=== PATIENT | male | born 1985 | race Caucasian/White ===

== ENCOUNTER 2017-01-23 18:45 | Emergency (ER) | payer BC ==
[2017-01-23 19:00] VITALS: TEMP 101.7
--- NOTE | 2017-01-23 19:30 | RAD ---
PROCEDURE: Chest,2 Views CLINICAL HISTORY: Fever, cough INDICATION: Same as above COMPARISON: None TECHNIQUE: PA and and lateral chest radiographs were obtained. FINDINGS: The lung matthews are well inflated. There are no discrete airspace infiltrates, pneumothoraces or pleural effusions. The pulmonary vascularity is normal The cardiomediastinal silhouette is unremarkable for patient's age and sex. IMPRESSION: There is no acute pleural-parenchymal process seen in the imaged lung matthews. Place of interpretation: T[facility]. Electronically signed by: Yury De Santiago MD 01/23/2017 7:30 PM CDT
--- NOTE | 2017-01-23 20:07 | ED.PDOC ---
History of Present Illness - General Chief Complaint: Fever Stated Complaint: Fever and not feeling well Time Seen by Provider: 01/23/17 18:51 Source: patient, RN notes reviewed, Vital Signs reviewed Exam Limitations: no limitations - History of Present Illness Initial Comments: Patient started with fever this afternoon. Reports it was 105.4 on the baby thermometer. + fatigue but no other specific symptoms. Timing/Duration: this afternoon Fever Severity/Quality: greater than 102 F Fever Therapy UNSTACKER: Ibuprofen Associated Symptoms: cough - but reports this is chronic and no change from baseline Review of Systems - Review of Systems Constitutional: States: chills, diaphoresis, fever, malaise EENTM: States: no symptoms reported. Denies: nose congestion, throat pain, mouth pain Respiratory: States: cough. Denies: short of breath, stridor, wheezing Cardiology: States: no symptoms reported. Denies: chest pain Gastrointestinal/Abdominal: States: no symptoms reported. Denies: abdominal pain, diarrhea, nausea, vomiting Genitourinary: Denies: no symptoms reported, discharge, dysuria Musculoskeletal: States: no symptoms reported Skin: States: no symptoms reported Neurological: States: no symptoms reported. Denies: headache Past Medical History (General) - Patient Medical History Hx Seizures: No Hx Stroke: No Hx Dementia: No Hx Asthma: No Hx of COPD: No Hx Cardiac Disorders: No Hx Congestive Heart Failure: No Hx Pacemaker: No Hx Hypertension: No Hx Thyroid Disease: No Hx Diabetes: No Hx Gastroesophageal Reflux: No Hx Renal Disease: No Hx Cancer: No Hx of HIV: No Hx Hepatitis C: No Hx MRSA: No - Vaccination History Hx Tetanus, Diphtheria Vaccination: No Hx Influenza Vaccination: No Hx Pneumococcal Vaccination: No Immunizations Up to Date: No - Social History Hx Tobacco Use: No Hx Chewing Tobacco Use: No Hx Alcohol Use: Yes Hx Substance Use: No Hx Substance Use Treatment: No Hx Depression: No Feels Threatened In Home Enviroment: No Feels Threatened In a Relationship: No Hx Physical Abuse: No Hx Emotional Abuse: No Hx Suspected Abuse: No - Female History Patient is a Female of Child Bearing Age (10 -59 yrs old): No Patient : No Family Medical History - Family History Mother Family History: No Known Living Status: Physical Exam - Physical Exam General Appearance: Alert, Comfortable, No apparent distress, Well Developed, Well Groomed, Well Hydrated, Well Nourished ENT Exam: normal ENT inspection, hearing grossly normal, TMs normal, pharynx normal Neck: non-tender, full range of motion, supple, normal inspection Respiratory: lungs clear, normal breath sounds, no respiratory distress, no accessory muscle use Cardiovascular/Chest: regular rate, rhythm, no edema, no gallop, no JVD, no murmur Gastrointestinal/Abdominal: normal bowel sounds, non tender, soft, no organomegaly, no pulsatile mass Extremity: normal range of motion, non-tender, normal inspection, no pedal edema Neurologic: alert, normal mood/affect, oriented x 3 Skin Exam: diaphoresis Comments: Vital Signs - 24 hr 01/23/17 01/23/17 18:54 19:17 Temperature 101.7 F H Pulse Rate [ 120 H Left Radial] Respiratory 20 Rate Blood Pressure 154/98 [Left Arm] O2 Sat by Pulse 92 L Oximetry Progress - Progress Progress: 01/23/17 20:09 Discussed lab and X-ray results with patient. Has mildly elevated LFT's so ordered Hepatitis Panel. He does admit to significant alcohol intake. Discussed decreasing his Etoh intake to no more that 2 drinks/day. Most likely fever is from viral illness. Will treat conservatively. - Results/Orders Results/Orders: Laboratory Tests 01/23/17 01/23/17 01/23/17 19:15 19:20 19:20 WBC 7.3 RBC 5.01 Hgb 16.8 Hct 47.7 MCV 95.1 H MCH 33.6 H MCHC 35.3 RDW 12.7 Plt Count 120 L MPV 10.0 Absolute Neuts (auto) 5.90 Absolute Lymphs (auto) 0.60 L Absolute Monos (auto) 0.60 Absolute Eos (auto) 0.10 Absolute Basos (auto) 0.00 Neutrophils % 80.8 H Lymphocytes % 8.3 L Monocytes % 8.8 Eosinophils % 1.5 Basophils % 0.6 Sodium 133 L Potassium 3.7 Chloride 100 L Carbon Dioxide 27 Anion Gap 9.7 L BUN 12 Creatinine 0.74 BUN/Creatinine Ratio 16.2 Random Glucose 120 H Serum Osmolality 267.3 L Calcium 9.0 Total Bilirubin 0.9 AST 108 H ALT 117 H Alkaline Phosphatase 78 Serum Total Protein 9.0 H Albumin 4.0 Globulin 5.0 H Albumin/Globulin Ratio 0.8 L Group A Strep DNA Negative - EKG/XRAY/CT XRAY: chest - No acute process per Radiologist Departure - Departure Clinical Impression: Fever and chills, Liver function test abnormality Time of Disposition: 20:11 Disposition: Discharge to Home or Self Care Condition: Good Departure Forms: ED Discharge - Pt. Copy, Patient Portal Self Enrollment Instructions: DI for Viral Upper Respiratory Infection -- Adult Diet: low fat, low cholesterol, other - Decrease alcohol intake to no more than 2 drinks per day Activity: increase activity as tolerated Referrals: Alec Jimenes MD [Primary Care Provider] - 1-5 Days Home Medications: Ambulatory Orders Omeprazole Magnesium [Prilosec Otc] 01/23/17
[2017-01-23 20:27] VITALS: BP 163/97; O2SAT 95
== END 2017-01-23 20:27 | disposition home or self-care (01) ==
LOC: ER 18:45
DX: R50.9 Fever, unspecified (principal); R94.5 Abnormal results of liver function studies

== ENCOUNTER → 2017-06-16 | Outpatient (CLI) | payer BC | END | disposition home or self-care (01) | LOC: LAB.O 15:36 | PROVIDERS: ATTEND Family Medicine | DX: Z30.2 Encounter for sterilization (principal) ==

== ENCOUNTER 2018-07-18 11:02 | Emergency (ER) | payer BC ==
[2018-07-18] MEDS ORDERED: MORPHINE SULFATE INJ 10 MG/ML VIAL ONE (11:29)
[2018-07-18] MEDS ORDERED: MORPHINE SULFATE INJ 10 MG/ML VIAL IV ONE (11:31)
--- NOTE | 2018-07-18 11:33 | ED.PDOC ---
History of Present Illness - General Chief Complaint: Abdominal Pain Stated Complaint: Epigastric discomfort Time Seen by Provider: 07/18/18 11:33 Information Source: patient Exam Limitations: no limitations - History of Present Illness Initial Comments: Trip Cortes 33 y/o male stated that he has history of GE reflux for the last 15 years on OTC-Prilosec had severe burning mid abdominal pain goes up to his epigastrium on and off for the last one week and getting more steady today and had 1-2 episodes of nausea/vomiting today.Denies diarrhea,dysuria, hemetemesis.Stated aggravated after a meal. Abdominal Pain Onset Location: epigastric Pain Radiation: no radiation Quality: moderate, burning Timing/Duration: 1 week Improving Factors: rest Worsening Factors: eating Associated Symptoms: other - see hpi Review of Systems - Review of Systems Constitutional: States: no symptoms reported EENTM: States: no symptoms reported Respiratory: States: no symptoms reported Cardiology: States: no symptoms reported Gastrointestinal/Abdominal: States: see HPI Genitourinary: States: no symptoms reported Musculoskeletal: States: no symptoms reported Skin: States: no symptoms reported Past Medical History (General) - Patient Medical History Hx Seizures: No Hx Stroke: No Hx Dementia: No Hx Asthma: No Hx of COPD: No Hx Cardiac Disorders: No Hx Congestive Heart Failure: No Hx Pacemaker: No Hx Hypertension: No Hx Thyroid Disease: No Hx Diabetes: No Hx Gastroesophageal Reflux: Yes Hx Renal Disease: No Hx Cancer: No Hx of HIV: No Hx Hepatitis C: No Hx MRSA: No Surgical History: other - right shoulder - Vaccination History Hx Tetanus, Diphtheria Vaccination: No Hx Influenza Vaccination: No Hx Pneumococcal Vaccination: No - Social History Hx Tobacco Use: No Hx Chewing Tobacco Use: No Hx Alcohol Use: Yes Hx Substance Use: No Hx Substance Use Treatment: No Hx Depression: No Hx Physical Abuse: No Hx Emotional Abuse: No Hx Suspected Abuse: No - Female History Patient : No Family Medical History - Family History Mother Family History: No Known Living Status: Physical Exam - Physical Exam General Appearance: Alert, Anxious, No apparent distress Eyes, Ears, Nose, Throat Exam: normal ENT inspection, other - non icteric sclerae Neck: non-tender, full range of motion, supple, normal inspection Respiratory: chest non-tender, lungs clear, normal breath sounds, no respiratory distress Cardiovascular/Chest: normal peripheral pulses, regular rate, rhythm, no murmur Peripheral Pulses: No deficit Gastrointestinal/Abdominal: normal bowel sounds, soft, tenderness - mid abdomen; no peritoneal signs Back Exam: no CVA tenderness, no vertebral tenderness Extremity: no pedal edema, no calf tenderness Neurologic: alert, oriented x 3 Skin Exam: normal color, warm/dry Progress - Progress Progress: 07/18/18 14:19 Vital Signs - 8 hr 07/18/18 07/18/18 12:15 13:15 Pulse Rate [ 64 64 PULSE OX] Respiratory 20 16 Rate Blood Pressure 124/78 124/96 [RAC] O2 Sat by Pulse 96 98 Oximetry - Results/Orders Results/Orders: 07/18/18 11:34 IV Care:Saline Lock per Protoc QSHIFT Laboratory Results - last 24 hr 07/18/18 07/18/18 11:37 11:57 WBC 9.4 RBC 4.47 L Hgb 15.7 Hct 44.3 MCV 99.3 H MCH 35.1 H MCHC 35.3 RDW 12.0 Plt Count 169 MPV 10.9 H Absolute Neuts (auto) 6.70 Absolute Lymphs (auto) 1.80 Absolute Monos (auto) 0.70 Absolute Eos (auto) 0.10 Absolute Basos (auto) 0.10 Neutrophils % 70.7 Lymphocytes % 19.6 L Monocytes % 7.4 Eosinophils % 1.6 Basophils % 0.7 PT 11.9 H INR 1.19 H PTT (SP) 30.1 Sodium 136 Potassium 3.4 L Chloride 101 Carbon Dioxide 27 Anion Gap 11.4 L BUN 9 Creatinine 0.79 BUN/Creatinine Ratio 11.4 Random Glucose 126 H Serum Osmolality 272.2 L Calcium 9.5 Magnesium 1.6 L Total Bilirubin 3.1 H* Direct Bilirubin 1.4 H Indirect Bilirubin 1.7 H AST 100 H ALT 79 H Alkaline Phosphatase 104 Creatine Kinase 128 CK-MB (CK-2) 2.5 CK-MB (CK-2) % Not Reportable Troponin I < 0.02 Serum Total Protein 8.8 H Albumin 3.8 Urine Color Gertrudis Urine Appearance Sl cloudy Urine pH >= 9.0 H* Ur Specific Trevor 1.015 Urine Protein 30 Urine Glucose (UA) Negative Urine Ketones Negative Urine Blood Negative Urine Nitrite Negative Urine Bilirubin Small H Urine Urobilinogen 1.0 Ur Leukocyte Esterase Negative Urine RBC 0 Urine WBC 5-10 H Ur Epithelial Cells 1-3 Urine Bacteria 0 Urine Mucus Trace - EKG/XRAY/CT XRAY: chest - no acute abnormalities Xray Comments: Abd-sono: biliary sludge;no gall stone or GB inflammation Departure - Departure Clinical Impression: Abnormal liver enzymes, Steatohepatitis, non-alcoholic Abdominal pain Qualifiers: Abdominal location: epigastric Qualified Code(s): R10.13 - Epigastric pain Time of Disposition: 14:22 Disposition: Discharge to Home or Self Care Condition: Good Departure Forms: ED Discharge - Pt. Copy, Patient Portal Self Enrollment Instructions: Ndiaye's Esophagus, Acid Reflux (Gastroesophageal Reflux Disease ), Adult (DC), [place] Diet, Nonalcoholic Steatohepatitis (KELSEY), Nonalcoholic Fatty Liver Disease (DC) Diet: other - AVOID GREASY SPICY FOODS UNTIL BETTER Referrals: Alec Jimenes MD [Primary Care Provider] - 1-2 Weeks Prescriptions: Acetaminophen W/ Codeine [Tylenol w/Codeine 300-30 mg] 1 tab PO Q8HRS PRN #10 tab PRN Reason: Pain Promethazine Tab [Phenergan Tablet] 25 mg PO .Q4H PRN #14 tab PRN Reason: Nausea Sucralfate Suspension [Carafate Suspension] 10 ml PO ACHS #300 ml Home Medications: Ambulatory Orders Omeprazole Magnesium [Prilosec Otc] 01/23/17 Acetaminophen W/ Codeine [Tylenol w/Codeine 300-30 mg] 1 tab PO Q8HRS PRN #10 tab 07/18/18 Promethazine Tab [Phenergan Tablet] 25 mg PO .Q4H PRN #14 tab 07/18/18 Sucralfate Suspension [Carafate Suspension] 10 ml PO ACHS #300 ml 07/18/18 Additional Instructions: Increase dose of (OTC) Nexium 20mg am/pm;Need to follow up with primary Md 18 Otober for referral to Level Vial Inspector;Return to ER as needed
[2018-07-18] MEDS ORDERED: SUCRALFATE 1 GM/10 ML 1 GM UD PO ONE (11:34)
[2018-07-18] MEDS ORDERED: PROMETHAZINE HCL INJ 25 MG/ML VIAL IM ONE (11:34)
[2018-07-18] MEDS ORDERED: ALUM & MAG HYDROX-SIMETHICONE 30 ML, LIDOCAINE VISCOUS 2% 15 ML PO ONE ×2 (11:34)
[2018-07-18] MEDS ORDERED: PANTOPRAZOLE INJECTION 80 MG in SODIUM CHLORIDE 0.9% 100ML 80 ML IVPB ONE (11:34)
[2018-07-18] MEDS ORDERED: ONDANSETRON INJ 4 MG/2 ML VIAL ONE (11:35)
[2018-07-18] MEDS ORDERED: ONDANSETRON INJ 4 MG/2 ML VIAL IV ONE (11:36)
[2018-07-18] MEDS ORDERED: LIDOCAINE HCL 2% (MOUTH-THROAT) 15 ML UD ONE (11:41)
[2018-07-18] MEDS ORDERED: ALUM & MAG HYDROX-SIMETHICONE 30 ML UD ONE (11:41)
[2018-07-18] MEDS ORDERED: SODIUM CHLORIDE 0.9% 100ML 100 ML IVPB ONE (11:42)
[2018-07-18] MEDS ORDERED: PANTOPRAZOLE SODIUM IV 40 MG VIAL ONE (11:42)
[2018-07-18] MEDS ORDERED: LACTATED RINGERS 1,000 ML IVS ONE (12:20)
--- NOTE | 2018-07-18 12:28 | RAD ---
EXAM DESCRIPTION: Abdomen 1 View CLINICAL HISTORY: pain COMPARISON: Portable chest x-ray on the same visit. TECHNIQUE: AP radiograph of the abdomen supine. 1201 hours. FINDINGS: Minimal gas in the small bowel with mostly fecal material in the ascending and mid colon. No gas-filled distended segments of bowel. No air seen under the bilateral diaphragms. No abnormal radiodense objects overlying the kidneys and included ureters. Included osseous structures are unremarkable. IMPRESSION: Possible proximal constipation. No free air. No gas-filled distended segments of bowel. Electronically signed by: Vinnie Jimenez MD 07/18/2018 12:27 PM CDT
--- NOTE | 2018-07-18 12:34 | RAD ---
EXAM DESCRIPTION: Chest,1 View CLINICAL HISTORY: pain COMPARISON: None. TECHNIQUE: AP portable taken at 1157 hours, upright position. Large patient body habitus. FINDINGS: Lung volumes are decreased bilaterally with elevation of the right hemidiaphragm. Large patient body habitus. Chronic densities in the lung bases bilaterally are stable. No new infiltrate pleural effusion. No pneumothorax. Heart is borderline enlarged but stable. No pulmonary vascular increase. No gross bony thoracic abnormalities. No free air under the diaphragms or distended air-filled bowel segments. IMPRESSION: Limited inspiratory effort stable since the prior study with bilateral chronic densities. Large patient body habitus. Stable since December 2016. Borderline cardiomegaly is unchanged. Pulmonary vascularity is not increased. No free air under the diaphragms. Electronically signed by: Vinnie Jimenez MD 07/18/2018 12:32 PM CDT
--- NOTE | 2018-07-18 14:09 | US ---
EXAM DESCRIPTION: Abdomen,Complete CLINICAL HISTORY: pain COMPARISON: None Available. TECHNIQUE: Complete abdominal ultrasound FINDINGS: The liver is enlarged up to 17.6 cm. Demonstrates mildly increased echogenicity. There is hepatopedal flow in the portal vein which measures 11 mm in diameter. There is no sonographic evidence of a focal hepatic mass. The gallbladder contains a small amount of layering sludge.The gallbladder wall measures 3 mm. No pericholecystic fluid or sonographic Alexander sign. The common bile duct measures 6-7 mm. Visualized portions of the pancreas are unremarkable. The spleen is normal in size, shape, and echotexture. The kidneys are normal in size, shape, and echotexture. The IVC and the proximal aorta are unremarkable. IMPRESSION: 1. Gallbladder sludge without sonographic evidence for acute cholecystitis. 2. Mild hepatomegaly with mild hepatic steatosis. Electronically signed by: Chris Gil MD 07/18/2018 2:08 PM CDT
[2018-07-18 14:43] VITALS: BP 124/89; O2SAT 99
== END 2018-07-18 14:43 | disposition home or self-care (01) ==
LOC: ER 11:02
DX: K75.81 Nonalcoholic steatohepatitis (NASH) (principal); R10.13 Epigastric pain; R79.89 Other specified abnormal findings of blood chemistry; K82.9 Disease of gallbladder, unspecified; K21.9 Gastro-esophageal reflux disease without esophagitis
CPT/HCPCS: 36415; 71045; 74018; 76700; 80048; 80076; 81001; 82550; 82553; 84484; 85025; 85610; 85730; J2270; J2405; J7050; J7120

== ENCOUNTER 2018-07-19 01:52 | Emergency (ER) | payer BC ==
[2018-07-19 02:16] VITALS: O2SAT 98
[2018-07-19] MEDS ORDERED: LACTATED RINGERS 1,000 ML IVS ONE (02:17)
[2018-07-19] MEDS ORDERED: MORPHINE SULFATE INJ 10 MG/ML VIAL IV ONE ×3 (02:17→05:15)
[2018-07-19] MEDS ORDERED: PROMETHAZINE HCL INJ 25 MG/ML VIAL IM ONE (02:17)
--- NOTE | 2018-07-19 02:18 | ED.PDOC ---
History of Present Illness - General Chief Complaint: Abdominal Pain Stated Complaint: abd pain, "gallbladder attack" Time Seen by Provider: 07/19/18 02:12 Information Source: patient Exam Limitations: no limitations - History of Present Illness Initial Comments: Trip Cortes 33 y/o male seen initially this am for epigastric pain symptoms after a meal was worked up had abnormal LFT and abdominal sono showed sludge in gall bladder but no stone ,thickening or inflammation,cbd-no dilatation.He was sent home his symptoms improved after iv morphine and protonix ,GI slider , carafate.Had long standing history of GE reflux esophagitis and on otc Nexium.Alyssa had eaten dinner then few hours later had burning epigastric pain with radiation to his chest took nexium,maalox,tums but his symptoms not relieved so came back to er.No n/v,no dysuria,no hematemesis,no sob. Abdominal Pain Onset Location: epigastric Pain Radiation: chest Quality: burning, steady Timing/Duration: 7-24 hours Improving Factors: nothing Worsening Factors: eating Associated Symptoms: other - see hpi Review of Systems - Review of Systems Constitutional: States: no symptoms reported EENTM: States: no symptoms reported Respiratory: States: no symptoms reported Cardiology: States: no symptoms reported Gastrointestinal/Abdominal: States: see HPI Genitourinary: States: no symptoms reported Musculoskeletal: States: no symptoms reported Skin: States: no symptoms reported Past Medical History (General) - Patient Medical History Hx Seizures: No Hx Stroke: No Hx Dementia: No Hx Asthma: No Hx of COPD: No Hx Cardiac Disorders: No Hx Congestive Heart Failure: No Hx Pacemaker: No Hx Hypertension: No Hx Thyroid Disease: No Hx Diabetes: No Hx Gastroesophageal Reflux: Yes Hx Renal Disease: No Hx Cancer: No Hx of HIV: No Hx Hepatitis C: No Hx MRSA: No Surgical History: other - shoulder - Vaccination History Hx Tetanus, Diphtheria Vaccination: No Hx Influenza Vaccination: No Hx Pneumococcal Vaccination: No - Social History Hx Tobacco Use: No Hx Chewing Tobacco Use: No Hx Alcohol Use: Yes - occ on weekends Hx Substance Use: No Hx Substance Use Treatment: No Hx Depression: No Hx Physical Abuse: No Hx Emotional Abuse: No Hx Suspected Abuse: No - Female History Patient : No Family Medical History - Family History Mother Family History: No Known Living Status: Physical Exam - Physical Exam General Appearance: Alert, Comfortable, No apparent distress Eyes, Ears, Nose, Throat Exam: normal ENT inspection, pharynx normal Neck: non-tender, full range of motion, supple Respiratory: lungs clear, normal breath sounds, no respiratory distress Cardiovascular/Chest: normal peripheral pulses, regular rate, rhythm, no murmur Peripheral Pulses: No deficit Gastrointestinal/Abdominal: normal bowel sounds, soft, tenderness - epigastrium ,no peritoneal signs Back Exam: normal inspection, no CVA tenderness, no vertebral tenderness Extremity: no pedal edema, no calf tenderness Neurologic: alert, oriented x 3 Skin Exam: normal color, warm/dry Progress - Progress Progress: 07/19/18 03:17 Vital Signs - 8 hr 07/19/18 07/19/18 02:08 02:39 Temperature 99.2 F 99.2 F Pulse Rate [ 93 H 85 left] Respiratory 20 20 Rate Blood Pressure 161/94 139/80 [left] O2 Sat by Pulse 98 98 Oximetry - Results/Orders Results/Orders: 07/19/18 02:17 IV Care:Saline Lock per Protoc QSHIFT CARDIAC PANEL,ER Stat HEPATIC FUNCTION PANEL Stat 07/19/18 02:45 EKG STAT 07/19/18 03:34 URINALYSIS Stat Laboratory Results - last 24 hr 07/19/18 07/19/18 07/19/18 02:17 02:17 02:19 WBC 14.7 H D RBC 4.30 L Hgb 14.8 Hct 42.5 MCV 99.0 H MCH 34.4 H MCHC 34.9 RDW 12.1 Plt Count 134 MPV 10.8 H Absolute Neuts (auto) 13.40 H Absolute Lymphs (auto) 0.60 L Absolute Monos (auto) 0.70 Absolute Eos (auto) 0.00 Absolute Basos (auto) 0.00 Neutrophils % 91.5 H Lymphocytes % 3.8 L Monocytes % 4.4 Eosinophils % 0.2 L Basophils % 0.1 PT 11.8 H INR 1.18 H PTT (SP) 28.1 Sodium 133 L Potassium 3.9 Chloride 100 L Carbon Dioxide 26 Anion Gap 10.9 L BUN 10 Creatinine 0.72 BUN/Creatinine Ratio 13.9 Random Glucose 125 H Serum Osmolality 266.9 L Calcium 9.8 Magnesium 1.6 L Total Bilirubin 6.5 H* D Direct Bilirubin 4.0 H D Indirect Bilirubin 2.5 H AST 140 H D ALT 112 H D Alkaline Phosphatase 116 Creatine Kinase 154 CK-MB (CK-2) 2.8 Troponin I < 0.02 Serum Total Protein 9.1 H Albumin 3.8 Lipase 32 Urine Opiates Screen Negative Urine Barbiturates Negative Ur Phencyclidine Scrn Negative U Amphetamin/Meth Scrn Negative U Benzodiazepines Scrn Negative U Cocaine Metab Screen Negative U Cannabinoids Screen Positive H - EKG/XRAY/CT EKG: Sinus, no ST T wave changes Comments: HR-83 Departure - Departure Clinical Impression: Elevated liver enzymes Abdominal pain Qualifiers: Abdominal location: epigastric Qualified Code(s): R10.13 - Epigastric pain Time of Disposition: 04:55 Disposition: Transfer to Hospital Condition: Fair Departure Forms: ED Discharge - Pt. Copy, Patient Portal Self Enrollment Referrals: Alec Jimenes MD [Primary Care Provider] - 1-2 Weeks Home Medications: Ambulatory Orders Omeprazole Magnesium [Prilosec Otc] 01/23/17 Acetaminophen W/ Codeine [Tylenol w/Codeine 300-30 mg] 1 tab PO Q8HRS PRN #10 tab 07/18/18 Promethazine Tab [Phenergan Tablet] 25 mg PO .Q4H PRN #14 tab 07/18/18 Sucralfate Suspension [Carafate Suspension] 10 ml PO ACHS #300 ml 07/18/18 Transfer to Outside Facility - Transfer Information Accepting Provider:: Dr. Paredes-hospitalist Accepting Facility: [facility] Reason for Transfer: required specialist not available - Restoration Technician
[2018-07-19 05:04] VITALS: TEMP 98.9
[2018-07-19 05:54] VITALS: BP 154/91
== END 2018-07-19 05:25 | disposition short-term general hospital (02) ==
LOC: ER 01:52
DX: R10.13 Epigastric pain (principal); R79.89 Other specified abnormal findings of blood chemistry; R07.9 Chest pain, unspecified; K21.9 Gastro-esophageal reflux disease without esophagitis
CPT/HCPCS: 80048; 80076; 80307; 81001; 82550; 82553; 83690; 84484; 85025; 85610; 85730; 93005; J2270; J2550; J7120

== ENCOUNTER → 2018-08-13 | Outpatient (CLI) | payer BC | LOC: GMAE 12:34 | PROVIDERS: ATTEND Family Medicine | DX: Z00.00 Encounter for general adult medical examination without abnormal findings (principal) ==